=== PATIENT | male | born 1950 | race Caucasian/White ===

== ENCOUNTER 2018-10-31 13:08 | Emergency (ER) | payer OTHER ==
--- NOTE | 2018-10-31 15:24 | ER ---
Nurse's Notes [facility] Name: Osorio Vazquez Age: 68 yrs Sex: Male : 1950 Arrival Date: 10/31/2018 Time: 13:14 Bed 25 Private MD: Diagnosis: Lower abdominal pain, unspecified;Dysuria Presentation: 10/31 13:16 Presenting complaint: Patient states: from the [facility] yesterday, i have this cath hj for my kidney and bladder, feels like i have to pee but i couldn't, called the clinic, they told me to come here; last urine last night around 8 pm; denies F/C; denies N/V;. Transition of care: patient was not received from another setting of care. Onset of symptoms was October 31, 2018. Risk Assessment: Do you want to hurt yourself or someone else? Patient reports no desire to harm self or others. Initial Sepsis Screen: Does the patient meet any 2 criteria? No. Patient's initial sepsis screen is negative. Does the patient have a suspected source of infection? No. Patient's initial sepsis screen is negative. Care prior to arrival: None. 13:16 Method Of Arrival: Ambulatory 13:16 Acuity: GARY 3 hj Historical: - Allergies: 13:18 Penicillins; hj - PMHx: 13:18 Hypertension; hj - PSHx: 13:37 left nephrostomy tube; iw - Immunization history:: Adult Immunizations unknown. - Ebola Screening: : Patient negative for fever greater than or equal to 101.5 degrees Fahrenheit, and additional compatible Ebola Virus Disease symptoms Patient denies exposure to infectious person Patient denies travel to an Ebola-affected area in the 21 days before illness onset No symptoms or risks identified at this time. - Social history:: Smoking status: Patient uses tobacco products. Screenin:42 Abuse screen: Denies threats or abuse. Denies injuries from another. Nutritional iw screening: No deficits noted. Tuberculosis screening: No symptoms or risk factors identified. 15:30 Fall Risk None identified. iw Assessment: 13:38 General: Appears in no apparent distress. Behavior is calm, cooperative. General: iw Denies fever, chills. Pain: Denies pain. Neuro: Level of Consciousness is awake, alert, obeys commands, Oriented to person, place, time, situation, Moves all extremities. Full function. Cardiovascular: Patient's skin is warm and dry. Respiratory: Respiratory effort is even, unlabored, Respiratory pattern is regular, symmetrical. GI: Abdomen is round non-distended, Patient currently denies abdominal pain, nausea, vomiting. : nephrostomy tube noted to left flank area, connected to leg bad, approx 200 mL blood tinged urine noted in bag, pt states that was urine output X 1 hour, pt states he was told he should be urinating from his penis/urethra after his procedure yesterday, has not had any urine output from urethra since 8 pm last night, pt denies suprapubic pain, c/o pain to left flank area when he lies on his back, described as pressure. Derm: Skin is intact, is healthy with good turgor. Musculoskeletal: Range of motion: intact in all extremities. 15:14 Reassessment: Patient appears in no apparent distress at this time. Patient and/or iw family updated on plan of care and expected duration. Pain level reassessed. Patient is alert, oriented x 3, equal unlabored respirations, skin warm/dry/pink. Vital Signs: 13:18 BP 148 / 75; Pulse 103; Resp 18; Temp 98.9(TE); Pulse Ox 98% ; Weight 78.02 kg; Height hj 5 ft. 5 in. (165.10 cm); Pain 0/10; 13:18 Body Mass Index 28.62 (78.02 kg, 165.10 cm) ED Course: 13:14 Patient arrived in ED. as 13:18 Triage completed. hj 13:18 Arm band placed on. hj 13:36 Ludmila Rivera, RN is Primary Nurse. iw 13:36 Placed in gown. Bed in low position. Call light in reach. Side rails up X 1. Verbal jp3 reassurance given. Pulse ox on. NIBP on. 13:36 Bladder scan completed. 20ml. Patient maintains SpO2 saturation greater than 95% on jp3 room air. 13:41 Vic Guzman PA is PHCP. jr8 13:41 Chintan Alfaro MD is Attending Physician. jr8 14:22 Initial lab(s) drawn, by ms, sent to lab. jp3 14:22 Basic Metabolic Panel Sent. jp3 15:34 No provider procedures requiring assistance completed. Patient did not have IV access hb during this emergency room visit. Administered Medications: No medications were administered Outcome: 15:23 Discharge ordered by MD. breaux 15:34 Discharged to home ambulatory. hb 15:34 Condition: stable 15:34 Discharge instructions given to patient, Instructed on discharge instructions, follow up and referral plans. Demonstrated understanding of instructions, follow-up care. 15:34 Patient left the ED. hb Signatures: Sylvia Acuña Irene RN RN Vic Guzman PA PA jr8 Joaquin, Henry, RN RN Delfina Hernández RN RN Gage Bonilla jp3 Corrections: (The following items were deleted from the chart) 13:21 13:16 Presenting complaint: [facility] states[facility] for my hj kidney and bladder, feels like i have to pee but i couldn't, called the clinic, they told me to come here; last urine last night around 8 pm; denies F/C; denies N/V; hj 13:37 13:18 PSHx: None; iw
--- NOTE | 2018-10-31 15:24 | EDPHYS ---
Physician Documentation [facility] Name: Osorio Vazquez Age: 68 yrs Sex: Male : 1950 Arrival Date: 10/31/2018 Time: 13:14 Bed 25 Private MD: ED Physician Chintan Alfaro HPI: 10/31 15:08 This 68 yrs old Male presents to ER via Ambulatory with complaints of Urinary jr8 Retention. 15:08 The patient presents with urinary symptoms, dribbling of urine, retention, urinary jr8 retention. Onset: The symptoms/episode began/occurred acutely, last night. Modifying factors: The symptoms are alleviated by nothing, the symptoms are aggravated by nothing. Associated signs and symptoms: Pertinent negatives: fever, nausea, vomiting. Severity of symptoms: At their worst the symptoms were mild, in the emergency department the symptoms are unchanged. The patient has not experienced similar symptoms in the past. The patient has been recently seen by a physician: in the hospital, seen at [facility] yesterday and had left nephroureteral tube placed. Patient reports he had left nephrostomy tube converted to left nephroureteral tube yesterday under fluoro guidance at [facility] in [place]. Patient reports left tube is draining well, but he is unable to urinate. Reports only dribbling of urine since last night at 1999 despite feeling the urge to urinate. Urinated without difficulty last night. Historical: - Allergies: 13:18 Penicillins; hj - PMHx: 13:18 Hypertension; hj - PSHx: 13:37 left nephrostomy tube; iw - Immunization history:: Adult Immunizations unknown. - Ebola Screening: : Patient negative for fever greater than or equal to 101.5 degrees Fahrenheit, and additional compatible Ebola Virus Disease symptoms Patient denies exposure to infectious person Patient denies travel to an Ebola-affected area in the 21 days before illness onset No symptoms or risks identified at this time. - Social history:: Smoking status: Patient uses tobacco products. ROS: 15:08 Constitutional: Negative for fever, chills, and weight loss, Cardiovascular: Negative jr8 for chest pain, palpitations, and edema, Respiratory: Negative for shortness of breath, cough, wheezing, and pleuritic chest pain, Abdomen/GI: Negative for abdominal pain, nausea, vomiting, diarrhea, and constipation, MS/Extremity: Negative for injury and deformity, Skin: Negative for injury, rash, and discoloration, Neuro: Negative for headache, weakness, numbness, tingling, and seizure. 15:08 : Positive for small amounts, retention, Negative for hematuria, flank pain. Exam: 15:08 Constitutional: This is a well developed, well nourished patient who is awake, alert, jr8 and in no acute distress. Head/Face: Normocephalic, atraumatic. Cardiovascular: Regular rate and rhythm with a normal S1 and S2. No gallops, murmurs, or rubs. Normal PMI, no JVD. No pulse deficits. Respiratory: Lungs have equal breath sounds bilaterally, clear to auscultation and percussion. No rales, rhonchi or wheezes noted. No increased work of breathing, no retractions or nasal flaring. Abdomen/GI: Soft, non-tender, with normal bowel sounds. No distension or tympany. No guarding or rebound. No evidence of tenderness throughout. Skin: Warm, dry with normal turgor. Normal color with no rashes, no lesions, and no evidence of cellulitis. MS/ Extremity: Pulses equal, no cyanosis. Neurovascular intact. Full, normal range of motion. 15:08 : CVA tenderness, is absent, Bladder: is normal, non-distended, non-tender, urine is clear, blood tinged, left nephroureteral tube is draining well without complication. 15:08 Neuro: Exam negative for acute changes, focal neuro deficits, Orientation: to person, place, time \T\ situation. Vital Signs: 13:18 BP 148 / 75; Pulse 103; Resp 18; Temp 98.9(TE); Pulse Ox 98% ; Weight 78.02 kg; Height 5 ft. 5 in. (165.10 cm); Pain 0/10; 13:18 Body Mass Index 28.62 (78.02 kg, 165.10 cm) MDM: 13:55 Patient medically screened. jr8 15:08 Differential diagnosis: nonspecific abdominal pain, UTI, urinary retention, Vazquez jr8 catheter problem, prostatitis, urethritis. Data reviewed: vital signs, nurses notes, lab test result(s), bladder scan reveals < 20 cc of urine, and as a result, I will discharge patient. Data interpreted: Pulse oximetry: on room air is 98 %. Interpretation: normal. Counseling: I had a detailed discussion with the patient and/or guardian regarding: the historical points, exam findings, and any diagnostic results supporting the discharge/admit diagnosis, lab results, the need for outpatient follow up, a urologist, to return to the emergency department if symptoms worsen or persist or if there are any questions or concerns that arise at home. ED course: Bladder is not distended, bladder scan reveals < 20 cc of urine in bladder, left nephro tube is draining well, renal function is normal on labs. Patient and family informed of negative exam and lab findings, no evidence of urinary retention and no need for vazquez catheterization at this time. Instructed to follow up with [facility] and return to ED for any new or worsening symptoms. 10/31 14:05 Order name: Basic Metabolic Panel; Complete Time: 15:00 jr8 10/31 13:56 Order name: Bladder Scanner; Complete Time: 14:04 jr8 Administered Medications: No medications were administered Disposition: 11/01 06:47 Co-signature as Attending Physician, Chintan Alfaro MD I agree with the assessment and kdr plan of care. Disposition: 10/31/18 15:23 Discharged to Home. Impression: Lower abdominal pain, unspecified, Dysuria. - Condition is Stable. - Discharge Instructions: Dysuria, Percutaneous Nephrostomy. - Medication Reconciliation Form, Thank You Letter, Antibiotic Education, Prescription Opioid Use form. - Follow up: Private Physician; When: 2 - 3 days; Reason: Recheck today's complaints, Continuance of care, Re-evaluation by your physician. - Problem is new. - Symptoms have improved. Signatures: Dispatcher [employer] EDMS Chintan Alfaro MD MD [facility] Ludmila Rivera RN RN iw Vic Guzman PA PA jr8 Mauro Barrios RN RN hj Baxter, Heather, ZENY RN hb Corrections: (The following items were deleted from the chart) 10/31 13:37 13:18 PSHx: None; avani davis 15:34 15:23 10/31/2018 15:23 Discharged to Home. Impression: Lower abdominal pain, hb unspecified; Dysuria. Condition is Stable. Forms are Medication Reconciliation Form, Thank You Letter, Antibiotic Education, Prescription Opioid Use. Follow up: Private Physician; When: 2 - 3 days; Reason: Recheck today's complaints, Continuance of care, Re-evaluation by your physician. Problem is new. Symptoms have improved. jr8
== END 2018-10-31 15:34 | disposition home or self-care (01) ==
LOC: ER 13:08
DX: R10.30 Lower abdominal pain, unspecified (principal); R30.0 Dysuria; Z88.0 Allergy status to penicillin; I10 Essential (primary) hypertension
CPT/HCPCS: 36415; 80048; 99284

== ENCOUNTER 2018-11-13 22:17 | Emergency (ER) | payer OTHER ==
[2018-11-13] MEDS ORDERED: NA CHLORIDE 0.9% 1,000 ML ONE (23:29)
[2018-11-13 23:30] LABS: Urine Culture Reflex Order NOT NEEDED; Urine RBC TNTC /HPF (NONE SEEN)
[2018-11-13 23:31] LABS: Urine Bacteria <20 /HPF (NONE SEEN)
[2018-11-13 23:36] LABS: Urine Appearance TURBID; Urine Blood 3+ (NEG); Urine Color RED; Urine Glucose NEGATIVE (NEG); Urine Protein 3+ (NEG)
[2018-11-13 23:37] LABS: Urine Microscopic Reflex ORDER UMIC
[2018-11-13 23:37] LABS: Absolute Lymphocytes (CBC) 1.8 K/uL (0.7-4.9); Basophils % 0.6 % (0-1.3); Hematocrit 35.7 % (39.6-49.0); Lymphocytes % 14.9 % (15.3-44.8); RBC Red Blood Cell Count 4.12 M/uL (4.33-5.43)
[2018-11-13 23:40] LABS: Urine Bilirubin NEGATIVE (NEG)
[2018-11-13 23:49] LABS: Potassium 3.5 mmol/L (3.5-5.1)
--- NOTE | 2018-11-14 00:14 | ER ---
Nurse's Notes [facility] Name: Osorio Vazquez Age: 68 yrs Sex: Male : 1950 Arrival Date: 11/13/2018 Time: 22:18 Bed 5 Private MD: Diagnosis: Urinary tract infection, site not specified Presentation: 11/13 23:11 Presenting complaint: Patient states: Blood in left nephrostomy bag that began at 1700 lp1 today; Denies any pain, states nephrostomy placed on 10/30/18. Transition of care: patient was not received from another setting of care. Onset of symptoms was November 13, 2018 at 17:00. Risk Assessment: Do you want to hurt yourself or someone else? Patient reports no desire to harm self or others. Initial Sepsis Screen: Does the patient meet any 2 criteria? No. Patient's initial sepsis screen is negative. Does the patient have a suspected source of infection? No. Patient's initial sepsis screen is negative. Care prior to arrival: None. 23:11 Method Of Arrival: Wheelchair lp1 23:11 Acuity: AGRY 3 lp1 Historical: - Allergies: 23:20 PENICILLINS; lp1 - Home Meds: 23:20 amlodipine 5 mg tab 1 tab once daily [Active]; lp1 - PMHx: 23:20 Hypertension; prostate cancer; lp1 - PSHx: 23:20 Left nephrostomy; lp1 - Immunization history:: Adult Immunizations up to date. - Family history:: not pertinent. - Social history:: Smoking status: Patient uses tobacco products, smokes one-half pack cigarettes per day. - Ebola Screening: : No symptoms or risks identified at this time. - Hospitalizations: : No recent hospitalization is reported. Screenin:20 Abuse screen: Denies threats or abuse. Denies injuries from another. Nutritional lp1 screening: No deficits noted. Tuberculosis screening: No symptoms or risk factors identified. Fall Risk None identified. Assessment: 23:00 General: Appears in no apparent distress. Behavior is calm, cooperative, appropriate lp1 for age. Pain: Denies pain. Neuro: Level of Consciousness is awake, alert, obeys commands, Oriented to person, place, time, situation. Cardiovascular: Patient's skin is warm and dry. Respiratory: Respiratory effort is even, unlabored, Respiratory pattern is regular. GI: Abdomen is flat. : Urine is huan blood, left nephrostomy in place; redressed site with gauze and Tegaderm, site clean, sutures intact. EENT: No signs and/or symptoms were reported regarding the EENT system. Derm: Skin is pink, warm \T\ dry. Musculoskeletal: No deficits noted. 11/14 00:00 Reassessment: Patient appears in no apparent distress at this time. No changes from lp1 previously documented assessment. Vital Signs: 11/13 23:12 BP 138 / 79; Pulse 96; Resp 18; Temp 100.6(O); Pulse Ox 98% on R/A; Weight 81.19 kg; lp1 Height 5 ft. 5 in. (165.10 cm); Pain 0/10; 23:30 BP 122 / 63; Pulse 93; Resp 18; Pulse Ox 96% on R/A; lp1 11/14 00:00 BP 121 / 64; Pulse 96; Resp 18; Pulse Ox 98% on R/A; lp1 01:15 BP 129 / 67; Pulse 100; Resp 18; Temp 99.3(O); Pulse Ox 93% on R/A; lp1 11/13 23:12 Body Mass Index 29.79 (81.19 kg, 165.10 cm) lp1 ED Course: 11/13 22:18 Patient arrived in ED. ag3 22:51 Sav Plata MD is Attending Physician. rn 23:05 Danielle Mills, ZENY is Primary Nurse. lp1 23:12 Triage completed. lp1 23:13 Arm band placed on left wrist. lp1 23:21 Patient has correct armband on for positive identification. Placed in gown. Bed in low lp1 position. Pulse ox on. NIBP on. 23:31 Inserted saline lock: 20 gauge in right antecubital area, using aseptic technique. lp1 Blood collected. 11/14 00:49 No provider procedures requiring assistance completed. lp1 01:25 IV discontinued, No redness/swelling at site. Pressure dressing applied. lp1 Administered Medications: 11/13 23:32 Drug: NS 0.9% 1000 ml Route: IV; Rate: 1000 ml; Site: right antecubital; lp1 11/14 00:27 Follow up: IV Status: Completed infusion; IV Intake: 1000ml tl1 00:26 Drug: Zofran 4 mg Route: IVP; Infused Over: 2 mins; Site: right antecubital; tl1 01:30 Follow up: Response: No adverse reaction lp1 00:26 Drug: Tylenol 650 mg Route: PO; tl1 01:20 Follow up: Response: Temperature is decreased lp1 00:27 Drug: Cipro 400 mg Volume: 200 ml; Route: IVPB; Infused Over: 60 mins; Site: right tl1 antecubital; 01:20 Follow up: IV Status: Completed infusion lp1 Intake: 00:27 IV: 1000ml; Total: 1000ml. tl1 Outcome: 00:13 Discharge ordered by MD. rn 01:25 Discharged to home ambulatory, with significant other. lp1 01:25 Condition: good 01:25 Discharge instructions given to patient, significant other, Instructed on discharge instructions, follow up and referral plans. medication usage, Demonstrated understanding of instructions, follow-up care, medications, Prescriptions given X 1. 01:30 Patient left the ED. lp1 Signatures: Sav Plata MD MD rn Pena, Laura, RN RN lp1 Lori Ingram RN RN tl1 Elsa Ross ag3 Corrections: (The following items were deleted from the chart) 01:44 01:43 Patient left the ED. lp1 lp1
--- NOTE | 2018-11-14 00:16 | EDPHYS ---
[facility] Name: Osorio Vazquez Age: 68 yrs Sex: Male : 1950 Arrival Date: 11/13/2018 Time: 22:18 Bed 5 Private MD: ED Physician Sav Plata HPI: 11/13 22:57 This 68 yrs old Male presents to ER via Unassigned with complaints of rn BLEEDING FROM TUBE. 22:57 The patient presents with Bleeding and leaking nephrostomy tube. Onset: The rn symptoms/episode began/occurred this morning. Modifying factors: The symptoms are alleviated by nothing, the symptoms are aggravated by urinating. Severity of symptoms: At their worst the symptoms were mild, in the emergency department the symptoms are unchanged. The patient has not experienced similar symptoms in the past. Reports left nephrostomy tube placed 2 weeks ago, has been doing fine, is draining, but noticed blood tinged/darker color today along with some leaking of urine from stoma on back. Otherwise feels ok. No fever/vomiting. . Historical: - Allergies: 23:20 PENICILLINS; lp1 - Home Meds: 23:20 amlodipine 5 mg tab 1 tab once daily [Active]; lp1 - PMHx: 23:20 Hypertension; prostate cancer; lp1 - PSHx: 23:20 Left nephrostomy; lp1 - Immunization history:: Adult Immunizations up to date. - Family history:: not pertinent. - Social history:: Smoking status: Patient uses tobacco products, smokes one-half pack cigarettes per day. - Ebola Screening: : No symptoms or risks identified at this time. - Hospitalizations: : No recent hospitalization is reported. ROS: 22:57 Constitutional: Negative for fever, chills, and weight loss, Eyes: Negative for injury, rn pain, redness, and discharge, Neck: Negative for injury, pain, and swelling, Cardiovascular: Negative for chest pain, palpitations, and edema, Respiratory: Negative for shortness of breath, cough, wheezing, and pleuritic chest pain, Abdomen/GI: Negative for abdominal pain, nausea, vomiting, diarrhea, and constipation, Back: + leaking from nephrostomy tube stoma MS/Extremity: Negative for injury and deformity, Skin: Negative for injury, rash, and discoloration, Neuro: Negative for headache, weakness, numbness, tingling, and seizure. Exam: 22:57 Constitutional: This is a well developed, well nourished patient who is awake, alert, rn and in no acute distress. Head/Face: Normocephalic, atraumatic. Eyes: Pupils equal round and reactive to light, extra-ocular motions intact. Lids and lashes normal. Conjunctiva and sclera are non-icteric and not injected. Cornea within normal limits. Periorbital areas with no swelling, redness, or edema. ENT: MMM Abdomen/GI: soft, non-tender Back: Left nephrostomy tube in place, no visile leakage, no signs of infection Male : Left nephrostomy tube with dark urine MS/ Extremity: Pulses equal, no cyanosis. Vital Signs: 23:12 BP 138 / 79; Pulse 96; Resp 18; Temp 100.6(O); Pulse Ox 98% on R/A; Weight 81.19 kg; lp1 Height 5 ft. 5 in. (165.10 cm); Pain 0/10; 23:30 BP 122 / 63; Pulse 93; Resp 18; Pulse Ox 96% on R/A; lp1 11/14 00:00 BP 121 / 64; Pulse 96; Resp 18; Pulse Ox 98% on R/A; lp1 01:15 BP 129 / 67; Pulse 100; Resp 18; Temp 99.3(O); Pulse Ox 93% on R/A; lp1 11/13 23:12 Body Mass Index 29.79 (81.19 kg, 165.10 cm) lp1 MDM: 11/13 22:51 Patient medically screened. rn 11/14 00:11 Differential diagnosis: UTI, nephrostomy tube complication, UTI. Data reviewed: vital rn signs, nurses notes, lab test result(s), and as a result, I will discharge patient. Counseling: I had a detailed discussion with the patient and/or guardian regarding: the historical points, exam findings, and any diagnostic results supporting the discharge/admit diagnosis, lab results, the need for outpatient follow up, to return to the emergency department if symptoms worsen or persist or if there are any questions or concerns that arise at home. Special discussion: I discussed with the patient/guardian in detail that at this point there is no indication for admission to the hospital. It is understood, however, that if the symptoms persist or worsen the patient needs to return immediately for re-evaluation. Based on the history and exam findings, there is no indication for further emergent testing or inpatient evaluation. I discussed with the patient/guardian the need to see the urologist for further evaluation of the symptoms. ED course: + UTI that seems to be causing darker urine and hematuria, patient feels fine, seems to be concerned more about the leaking, will dc home with abx and [facility]. Return precautions given and understood.. 11/13 22:56 Order name: CBC with Diff; Complete Time: 00:05 rn 11/13 22:56 Order name: Basic Metabolic Panel; Complete Time: 00:05 rn 11/13 22:56 Order name: Urine Culture rn 11/13 22:56 Order name: Urine Microscopic Only; Complete Time: 00:05 rn 11/13 23:36 Order name: Urinalysis; Complete Time: 00:05 EDMS 11/13 22:56 Order name: IV Start; Complete Time: 23:32 rn 11/13 22:56 Order name: Urine Dipstick-Ancillary (obtain specimen); Complete Time: 23:19 rn Administered Medications: 11/13 23:32 Drug: NS 0.9% 1000 ml Route: IV; Rate: 1000 ml; Site: right antecubital; lp1 11/14 00:27 Follow up: IV Status: Completed infusion; IV Intake: 1000ml tl1 00:26 Drug: Zofran 4 mg Route: IVP; Infused Over: 2 mins; Site: right antecubital; tl1 01:30 Follow up: Response: No adverse reaction lp1 00:26 Drug: Tylenol 650 mg Route: PO; tl1 01:20 Follow up: Response: Temperature is decreased lp1 00:27 Drug: Cipro 400 mg Volume: 200 ml; Route: IVPB; Infused Over: 60 mins; Site: right tl1 antecubital; 01:20 Follow up: IV Status: Completed infusion lp1 Disposition: 11/14/18 00:13 Discharged to Home. Impression: Urinary tract infection, site not specified. - Condition is Stable. - Discharge Instructions: Urinary Tract Infection, Adult. - Prescriptions for Cipro 500 mg Oral Tablet - take 1 tablet by ORAL route every 12 hours for 10 days; 20 tablet. - Medication Reconciliation Form, Thank You Letter, Antibiotic Education, Prescription Opioid Use form. - Follow up: Private Physician; When: As needed; Reason: Recheck today's complaints, Re-evaluation by your physician. - Problem is new. - Symptoms have improved. Signatures: Dispatcher [employer] [facility] Sav Plata MD MD rn Pena, Laura RN RN lp1 Lori Ingram RN RN tl1 Corrections: (The following items were deleted from the chart) 11/13 23:35 23:20 URINALYSIS+U.LAB.BRZ ordered. [facility] 23:45 23:42 Urine Microscopic Only ordered. [facility] 11/14 01:43 00:13 11/14/2018 00:13 Discharged to Home. Impression: Urinary tract infection, site lp1 not specified. Condition is Stable. Forms are Medication Reconciliation Form, Thank You Letter, Antibiotic Education, Prescription Opioid Use. Follow up: Private Physician; When: As needed; Reason: Recheck today's complaints, Re-evaluation by your physician. Problem is new. Symptoms have improved. rn
== END 2018-11-14 01:43 | disposition home or self-care (01) ==
LOC: ER 22:17
DX: N39.0 Urinary tract infection, site not specified (principal); I10 Essential (primary) hypertension; F17.210 Nicotine dependence, cigarettes, uncomplicated; Z88.0 Allergy status to penicillin; Z85.528 Personal history of other malignant neoplasm of kidney; Z90.5 Acquired absence of kidney
CPT/HCPCS: 96365; 96361; 87088; 85025; 87086; 80048; 36415; 87077 ×2; 87186 ×2; 96375; 99284; J7030; 81003; 81015